=== PATIENT | female | born 1965 | race Caucasian/White ===

== ENCOUNTER 2020-06-08 08:04 | Outpatient (CLI) | payer BC, SELFPAY ==
--- NOTE | 2020-06-08 08:16 | MM_ITS ---
WS: [id number] Exam: [id number] Date/Time of Exam: 06/08/2020 8:22 AM Reason For Exam: SCREENING VIEWS: MLO and CC views both breasts. Comparison made with prior exam of 05/17/2007. Findings: There was no sign of mass, architectural distortion or suspicious calcification in either breast. Sc attered fibroglandular density MM/[place] [id number] Impression: BI-RADS: 2-Benign FOLLOW-UP: 1 Year Follow-up This mammogram was also analyzed by the Computer Aided Detection System R2 Imag e Communication Center Operator.
== END 2020-06-08 08:05 | disposition home or self-care (01) ==
PROVIDERS: PCP Physician Assistant; Visit Provider Physician Assistant
DX: Z12.31 Encounter for screening mammogram for malignant neoplasm of breast (principal)
CPT/HCPCS: 77067

== ENCOUNTER 2020-11-27 18:37 | Emergency (ER) | payer BC, SELFPAY ==
[2020-11-27] VITALS (15 sets, daily range): BP systolic 103–190; BP diastolic 69–97; PULSE 80–143; RESP 10–18; TEMP 36.1; O2SAT 97–100; BMI 27.4
--- NOTE | 2020-11-27 18:39 | XRR_ITS ---
PROCEDURE INFORMATION: Exam: XR Chest Exam date and time: 11/27/2020 6:41 PM Age: 55 years old Clinical indication: Other: Syncope/bradycardia; Patient HX: Unresponsive TECHNIQUE: Imaging protocol: XR of the chest. Views: 1 view. COMPARISON: No relevant prior studies available. FINDINGS: Tubes, catheters and devices: The endotracheal tube is appropriately positioned in the distal thoracic trachea with the tip above the gigi. The nasogastric tube is positioned in the stomach, well beyond the diaphragmatic hiatus. The tip is not imaged. Lungs: Lung volumes are low. There is no consolidation. Pleural spaces: There is no pneumothorax. The left hemidiaphragm is obscured which could represent pleural fluid or atelectasis. Heart/Mediastinum: There is mild enlargement of the cardiac silhouette. Bones/joints: Bones are unremarkable. XR/XR chest 1V portable [id number] IMPRESSION: 1. Satisfactory endotracheal tube position. 2. Atelectasis or small volume pleural fluid on the left. 3. NG tube enters the stomach. The tip is not imaged.
[2020-11-27] MEDS: succinylcholine 20 mg/mL SDV 10mL 100 MG IVP (18:42)
[2020-11-27] MEDS: midazolam 1 mg/mL INJ 2 mL 4 MG (18:50)
--- NOTE | 2020-11-27 18:52 | CTR_ITS ---
PROCEDURE INFORMATION: Exam: CT Head Without Contrast Exam date and time: 11/27/2020 6:54 PM Age: 55 years old Clinical indication: Pain; Syncope and collapse; Headache; Prior surgery; Surgery type: Embolization; Additional info: Syncope, sudden ANDREW, HX cerebral anuerysm TECHNIQUE: Imaging protocol: Computed tomography of the head without contrast. Radiation optimization: All CT scans at this facility use at least one of these dose optimization techniques: automated exposure control; mA and/or kV adjustment per patient size (includes targeted exams where dose is matched to clinical indication); or iterative reconstruction. Other technique: STROKE PROTOCOL was implemented. COMPARISON: No relevant prior studies available. RADIATION DOSE METRICS: Total DLP (mGy-cm): 786.81 FINDINGS: Brain: There is a left cerebral hemispheric subdural hematoma measuring up to 6 mm in thickness. There is small volume subarachnoid hemorrhage in the left sylvian cistern and adjacent sulci. There are 2 intraparenchymal hematomas in the left temporal lobe measuring 3.7 x 1.8 x 1.4 cm in the temporal operculum (5 cc), and 3.6 x 1.5 x 1.6 cm (4 cc) in the anterior temporal lobe. There is diffuse partial sulcal effacement in the left cerebral hemisphere. There are aneurysm coils in the left suprasellar cistern. There is rightward midline shift of 6 mm. Cerebral ventricles: There is partial effacement of the left lateral ventricle. There is no intraventricular hemorrhage. The right lateral ventricle is normal. Bones/joints: The calvarium is intact. Paranasal sinuses: The paranasal sinuses are clear. Mastoid air cells: The mastoid air cells are clear. Soft tissues: The visible extracranial soft tissues are unremarkable. CT/CT head wo con* [id number] IMPRESSION: 1. Left sylvian subarachnoid, temporal intraparenchymal, and left cerebral hemispheric subdural hemorrhage, likely related to bleeding aneurysm. There are adjacent aneurysm coils in the left suprasellar cistern. No aneurysm is clearly visible on this exam. Consider CTA. 2. 6 mm rightward subfalcine midline shift. 3. THIS REPORT CONTAINS FINDINGS THAT MAY BE CRITICAL TO PATIENT CARE. The findings were verbally communicated via telephone conference with PROSPER HINES at 7:19 PM CDT on 11/27/2020. The findings were acknowledged and understood. ASSESSMENT: ASPECTS ([place] Stroke Program Early CT Score) is 8. Radiation Dose CTDIVOL = (mGy): DLP = 786.81 (mGy-cm)
[2020-11-27] MEDS: propofol 10 mg/mL SDV 20 mL 30 MG IVP (19:06)
[2020-11-27] MEDS: propofol 10 mg/mL SDV 20 mL 50 MG IVP ×2 (19:14→19:39)
[2020-11-27] MEDS: propofol 1,000 MG/100 ML INJ 9.3 MG IV (19:18)
--- NOTE | 2020-11-27 19:22 | PC.NURSE ---
Propofol titrated up to 25 mcg/kg/min.
[2020-11-27 19:26] LABS: ABG PCO2 47.9 mmHg (35-45); ABG PH Result 7.37 (7.35-7.45); Base Excess ABG 1.9 mmol/L (-2.0-2.0); Blood Gas Allen Test Pos; Blood Gas Sample Type Arterial; Carboxyhemoglobin 3.1 %THgb (0.4-20.1); HCO3 ABG 27.9 mmol/L (22-26); HGB O2 Sat 95.1 % (95-100); Ionized Calcium Level - ABG 1.1 mmol/L (1.1-1.4); Methemoglobin 0.8 % (0.4-1.5); Potassium Level - ABG 2.8 mmol/L (3.5-5.0); Total Hemoglobin 13.7 g/dL (12-16)
--- NOTE | 2020-11-27 19:27 | PC.NURSE ---
Patient propofol titrated up to 32mcg/kg/min.
[2020-11-27 19:28] LABS: Alveolar-Arterial Oxygen Gradi 31.7 mmHg (5-10); Blood Gas Operator Identificat glc; Blood Gas Sample Site Radial, right; Oxygen Device VENT
[2020-11-27 19:32] LABS: Add Urine Microscopic? NO; Charge for UA Resulting for Rev
--- NOTE | 2020-11-27 19:34 | ED_ITS ---
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 They were going to come to the hospital, but for she got out of the restaurant, she collapsed. She was unresponsive on EMS arrival. They found a heart rate in the 30s. She was given atropine in route as well as placed on a dopamine drip. On arrival, her heart rate was in the 140s, and she was hypertensive, and still unresponsive. On arrival she also vomited, and was therefore intubated. Review of Systems General: Reports: ROS unobtainable due to medical condition Physical Exam Const: EXAM LIMITATIONS: altered mental status GENERAL APPEARANCE: diaphoretic ORIENTATION/CONSCIOUSNESS: Yes Other orientation findings (Unre sponsive) Eye: COMMON NORMALS: conjunctivae normal CONJUNCTIVA: Yes conjunctivae normal Chest: COMMONS NORMALS: normal inspection of the chest Resp: COMMON NORMALS: clear to auscultation bilaterally EFFORT & INSPECTION: Yes decreased respiratory effort AUSCULTATION: clear to auscultation bilaterally Cardio: COMMON NORMALS: regular rhythm and Peripheral pulses 2+ throughout RATE: tachycardic RHYTHM: regular rhythm PERIPHERAL PULSES: Peripheral pulses 2+ throughout GI: COMMON NORMALS: Soft to palpation INSPECTION: Yes normal to inspection AUSCULTATION: Yes normoactive bowel sounds PALPATION: Yes Soft to palpation Extremity: NARRATIVE EXTREMITY EXAM: Some spontaneous movement of left upper extremity. Otherwise no movement. Neuro: ROSALEE COMA SCALE: document GCS findings Rosalee coma scale eye opening: None Vashon coma scale verbal response: None Rosalee coma scale motor response: None Rosalee coma scale total score: 3 SENSORIUM/ORIENTATION: Yes other (unresponsive. toes downgoing bilaterally. ) Procedures Intubation Time out performed: No sedative: Etomidate Mg Given: 20 paralytic: Succinylcholine Mg Given: 100 Laryngoscope: Roman (4) ET Tube Size: 8 Tube Secured Depth (cm): 22 Tube Secured Location: lips Tube Placement Confirmation: visualized tube passing through cords, equal breath sounds bilaterally, no breath sounds over epigastrium and confirmation by capnometry Patient Tolerated Procedure: well and no complications Intubation Complications: none Course Vital Signs: Vital signs: Vital Signs Temperature 97.0 F L 11/27/20 18:37 Pulse Rate 81 11/27/20 20:00 Respiratory Rate 16 11/27/20 20:00 Blood Pressure 146/85 11/27/20 20:00 Pulse Oximetry 100 11/27/20 20:00 MDM - Syncope MDM Narrative: Medical decision making narrative: 55-year-old female with a history of carotid aneurysm.She collapsed in the field. She was bradycardic initially. Tachycardic on arrival here after atropine and dopamine. Dopamine was stopped on arrival. The patient vomited in her airway, and was intubated without complication. She was promptly moved to CT scan, where a left subarachnoid bleed with temporal intraparenchymal hemorrhage was found she has a 6 mm rightward shift. [facility] and spoke with neurosurgery on-call. We also spoke with the ER physician there. Recommendations are 750 mg of Keppra to be loaded IV which is being done. We have a helicopter in route to transport to the ER there. Lab Data: Labs: Lab Results 11/27/20 11/27/20 11/27/20 Range/Units 19:20 19:20 19:20 WBC (4.0-10.0) 10^3/ uL RBC (4.1-5.3) 10^6/u L Hgb (11.5-15.3) g/dL Hct (37.0-47.0) % MCV (81-99) fL MCH (28.0-34.0) pg MCHC (30.0-36.0) g/dL RDW (12.1-15.1) % Plt Count (130-400) 10^3/c mm MPV (7.4-10.4) fL Neut % (Auto) % Lymph % (Auto) % [place] % (Auto) % Eos % (Auto) % Baso % (Auto) % Neut # (Auto) (1.8-7.7) 10^3/u L Lymph # (Auto) (0.8-4.8) 10^3/u L [place] # (Auto) (0.2-0.9) 10^3/u L Eos # (Auto) (0.0-0.8) 10^3/u L Baso # (Auto) (0.0-0.1) 10^3/u L Nucleated RBC % (a uto) % Nucleated RBCs # /100WBC PT (12.1-14.9) SECO NDS INR (0.8-1.2) APTT (23.9-36.7) SECO NDS D-Dimer (0-0.59) ug/mIFE U Specimen Type Arterial Sample Site Radial, right ABG pH 7.37 (7.35-7.45) ABG pCO2 47.9 H (35-45) mmHg ABG pO2 124.0 H (80.0-100.0) mmH g ABG HCO3 27.9 H (22-26) mmol/L ABG O2 Saturation 99.0 ABG Base Excess 1.9 (-2.0-2.0) mmol/ L Ayo Test Pos A-a O2 Gradient 31.7 H (5-10) mmHg Hematocrit 42.0 (37-47) % Hgb O2 Saturation 95.1 (95-100) % Carboxyhemoglobin 3.1 (0.4-20.1) %THgb Methemoglobin 0.8 (0.4-1.5) % Total Hemoglobin 13.7 (12-16) g/dL Sodium 145.0 H (131-143) mmol/L Potassium 2.8 L (3.5-5.0) mmol/L Glucose 213.0 H (70-115) mg/dL Ionized Calcium 1.1 (1.1-1.4) mmol/L O2 Delivery Device Vent FiO2 60.0 % Tidal Volume 0.40 PEEP 5.0 cmH20 Trauma Doctor ID glc Chloride (98-107) mmol/L Carbon Dioxide (22-29) mmol/L Anion Gap (5-19) BUN (6-20) mg/dL Creatinine (0.5-0.9) mg/dL GFR Calculation (90-130) mL/min Calculated Osmolal ity (285-295) mOsm/k g Calcium (8.5-10.5) mg/dL Total Bilirubin (0.15-1.2) mg/dL AST (0-32) U/L ALT (0-33) U/L Alkaline Phosphata se (35-105) IU/L Creatine Kinase (26-192) U/L Troponin T Baselin e (0-10) ng/L NT-Pro-B Natriuret Pep (0-125) pg/mL Total Protein (6.6-8.7) g/dL Albumin (3.5-5.2) g/dL Globulin (1.3-4.6) g/dL TSH (0.27-4.20) uIU/ mL Free T4 (0.82-1.77) ng/d L Urine Color Straw (Yellow) Urine Appearance Clear (CLEAR) Urine pH 6.5 (5-7) Ur Specific Gravit y 1.010 (1.005-1.030) Urine Protein Neg (Negative) Urine Glucose (UA) Norm (Normal) Urine Ketones Negative (Negative) Urine Blood Neg (Negative) Urine Nitrate Negative (Negative) Urine Bilirubin Neg (Negative) Urine Urobilinogen Norm (Negative) mg/dL Ur Leukocyte Roma ase Negative (Negative) Urine Opiates Scre en Negative (Negative) ng/mL Ur Barbiturates Sc reen Negative (Negative) ng/mL Ur Phencyclidine S crn Negative (Negative) ng/mL Ur Amphetamines Sc reen Negative (Negative) ng/mL U Benzodiazepines Scrn Negative (Negative) ng/mL Urine Cocaine Scre en Negative (Negative) ng/mL U Marijuana (THC) Screen Negative (Negative) ng/mL 11/27/20 11/27/20 11/27/20 Range/Units 19:42 19:42 19:42 WBC 12.3 H (4.0-10.0) 10^3/ uL RBC 4.34 (4.1-5.3) 10^6/u L Hgb 13.0 (11.5-15.3) g/dL Hct 39.1 (37.0-47.0) % MCV 90.1 (81-99) fL MCH 30.0 (28.0-34.0) pg MCHC 33.2 (30.0-36.0) g/dL RDW 13.2 (12.1-15.1) % Plt Count 353 (130-400) 10^3/c mm MPV 10.1 (7.4-10.4) fL Neut % (Auto) 70.9 % Lymph % (Auto) 20.2 % [place] % (Auto) 6.4 % Eos % (Auto) 1.2 % Baso % (Auto) 0.6 % Neut # (Auto) 8.71 H (1.8-7.7) 10^3/u L Lymph # (Auto) 2.5 (0.8-4.8) 10^3/u L [place] # (Auto) 0.8 (0.2-0.9) 10^3/u L Eos # (Auto) 0.2 (0.0-0.8) 10^3/u L Baso # (Auto) 0.1 (0.0-0.1) 10^3/u L Nucleated RBC % (a uto) 0 % Nucleated RBCs # 0.0 /100WBC PT 14.00 (12.1-14.9) SECO NDS INR 1.05 (0.8-1.2) APTT 33.1 (23.9-36.7) SECO NDS D-Dimer 1.22 H (0-0.59) ug/mIFE U Specimen Type Sample Site ABG pH (7.35-7.45) ABG pCO2 (35-45) mmHg ABG pO2 (80.0-100.0) mmH g ABG HCO3 (22-26) mmol/L ABG O2 Saturation ABG Base Excess (-2.0-2.0) mmol/ L Ayo Test A-a O2 Gradient (5-10) mmHg Hematocrit (37-47) % Hgb O2 Saturation (95-100) % Carboxyhemoglobin (0.4-20.1) %THgb Methemoglobin (0.4-1.5) % Total Hemoglobin (12-16) g/dL Sodium 140 (131-143) mmol/L Potassium 3.4 L (3.5-5.0) mmol/L Glucose 196 H (70-115) mg/dL Ionized Calcium (1.1-1.4) mmol/L O2 Delivery Device FiO2 % Tidal Volume PEEP cmH20 Trauma Doctor ID Chloride 102 (98-107) mmol/L Carbon Dioxide 28 (22-29) mmol/L Anion Gap 13.4 (5-19) BUN 9 (6-20) mg/dL Creatinine 0.7 (0.5-0.9) mg/dL GFR Calculation 86.6 L (90-130) mL/min Calculated Osmolal ity 294 (285-295) mOsm/k g Calcium 8.2 L (8.5-10.5) mg/dL Total Bilirubin 0.3 (0.15-1.2) mg/dL AST 35 H (0-32) U/L ALT 44 H (0-33) U/L Alkaline Phosphata se 81 (35-105) IU/L Creatine Kinase 126 (26-192) U/L Troponin T Baselin e (0-10) ng/L NT-Pro-B Natriuret Pep 81 (0-125) pg/mL Total Protein 6.3 L (6.6-8.7) g/dL Albumin 4.0 (3.5-5.2) g/dL Globulin 2.3 (1.3-4.6) g/dL TSH 1.59 (0.27-4.20) uIU/ mL Free T4 1.20 (0.82-1.77) ng/d L Urine Color (Yellow) Urine Appearance (CLEAR) Urine pH (5-7) Ur Specific Gravit y (1.005-1.030) Urine Protein (Negative) Urine Glucose (UA) (Normal) Urine Ketones (Negative) Urine Blood (Negative) Urine Nitrate (Negative) Urine Bilirubin (Negative) Urine Urobilinogen (Negative) mg/dL Ur Leukocyte Roma ase (Negative) Urine Opiates Scre en (Negative) ng/mL Ur Barbiturates Sc reen (Negative) ng/mL Ur Phencyclidine S crn (Negative) ng/mL Ur Amphetamines Sc reen (Negative) ng/mL U Benzodiazepines Scrn (Negative) ng/mL Urine Cocaine Scre en (Negative) ng/mL U Marijuana (THC) Screen (Negative) ng/mL 11/27/20 Range/Units 19:42 WBC (4.0-10.0) 10^3/ uL RBC (4.1-5.3) 10^6/u L Hgb (11.5-15.3) g/dL Hct (37.0-47.0) % MCV (81-99) fL MCH (28.0-34.0) pg MCHC (30.0-36.0) g/dL RDW (12.1-15.1) % Plt Count (130-400) 10^3/c mm MPV (7.4-10.4) fL Neut % (Auto) % Lymph % (Auto) % [place] % (Auto) % Eos % (Auto) % Baso % (Auto) % Neut # (Auto) (1.8-7.7) 10^3/u L Lymph # (Auto) (0.8-4.8) 10^3/u L [place] # (Auto) (0.2-0.9) 10^3/u L Eos # (Auto) (0.0-0.8) 10^3/u L Baso # (Auto) (0.0-0.1) 10^3/u L Nucleated RBC % (a uto) % Nucleated RBCs # /100WBC PT (12.1-14.9) SECO NDS INR (0.8-1.2) APTT (23.9-36.7) SECO NDS D-Dimer (0-0.59) ug/mIFE U Specimen Type Sample Site ABG pH (7.35-7.45) ABG pCO2 (35-45) mmHg ABG pO2 (80.0-100.0) mmH g ABG HCO3 (22-26) mmol/L ABG O2 Saturation ABG Base Excess (-2.0-2.0) mmol/ L Ayo Test A-a O2 Gradient (5-10) mmHg Hematocrit (37-47) % Hgb O2 Saturation (95-100) % Carboxyhemoglobin (0.4-20.1) %THgb Methemoglobin (0.4-1.5) % Total Hemoglobin (12-16) g/dL Sodium (131-143) mmol/L Potassium (3.5-5.0) mmol/L Glucose (70-115) mg/dL Ionized Calcium (1.1-1.4) mmol/L O2 Delivery Device FiO2 % Tidal Volume PEEP cmH20 Trauma Doctor ID Chloride (98-107) mmol/L Carbon Dioxide (22-29) mmol/L Anion Gap (5-19) BUN (6-20) mg/dL Creatinine (0.5-0.9) mg/dL GFR Calculation (90-130) mL/min Calculated Osmolal ity (285-295) mOsm/k g Calcium (8.5-10.5) mg/dL Total Bilirubin (0.15-1.2) mg/dL AST (0-32) U/L ALT (0-33) U/L Alkaline Phosphata se (35-105) IU/L Creatine Kinase (26-192) U/L Troponin T Baselin e 10 (0-10) ng/L NT-Pro-B Natriuret Pep (0-125) pg/mL Total Protein (6.6-8.7) g/dL Albumin (3.5-5.2) g/dL Globulin (1.3-4.6) g/dL TSH (0.27-4.20) uIU/ mL Free T4 (0.82-1.77) ng/d L Urine Color (Yellow) Urine Appearance (CLEAR) Urine pH (5-7) Ur Specific Gravit y (1.005-1.030) Urine Protein (Negative) Urine Glucose (UA) (Normal) Urine Ketones (Negative) Urine Blood (Negative) Urine Nitrate (Negative) Urine Bilirubin (Negative) Urine Urobilinogen (Negative) mg/dL Ur Leukocyte Roma ase (Negative) Urine Opiates Scre en (Negative) ng/mL Ur Barbiturates Sc reen (Negative) ng/mL Ur Phencyclidine S crn (Negative) ng/mL Ur Amphetamines Sc reen (Negative) ng/mL U Benzodiazepines Scrn (Negative) ng/mL Urine Cocaine Scre en (Negative) ng/mL U Marijuana (THC) Screen (Negative) ng/mL Critical Care Time Critical Care Time: Critical Care Time: Yes Total Critical Care Time: 40 Attestation: This case had a high probability of a clinically significant, sudden, or life threatening deterioration of this patient's condition which required my full and direct attention, intervention and personal management. Discharge Plan Discharge Patient Disposition: Xfer Short-Term Hosp Clinical Impression: Subarachnoid hemorrhage, Intracranial hemorrhage Condition: Critical Referrals: Floresita Wills PA [Primary Care Provider] - Coding Level of Care Code ED Club Car Attendant for [place] Fwd Exam Detailed
[2020-11-27 19:36] LABS: Bilirubin Urine Neg (Negative); Blood Urine Neg (Negative); Glucose Urine UA Norm (Normal); Ketones Urine Negative (Negative); Leukocyte Esterase Urine Negative (Negative); Nitrate Urine Negative (Negative); Protein Urine Neg (Negative); Urine Appearance Clear (CLEAR); Urine Color Straw (Yellow); Urobilinogen Urine Norm (Negative); pH Urine 6.5 (5-7)
[2020-11-27] MEDS: levETIRAcetam 750 MG in sodium chloride 0.9% (100 ml) 100 ML 430 MG IV (19:45)
[2020-11-27 19:46] LABS: Amphetamines Screen Urine Negative (Negative); Barbiturates Screen Urine Negative (Negative); Benzodiazepines Screen Urine Negative (Negative); Cocaine Screen Urine Negative (Negative); Opiate Screen Urine Negative (Negative); PCP Screen Urine Negative (Negative); THC Screen Urine Negative (Negative)
[2020-11-27] MEDS: diphenhydrAMINE 50 mg/mL SDV 1mL IVP (19:52)
--- NOTE | 2020-11-27 19:54 | PC.NURSE ---
Pt was brought in by EMS on 15L NRB mask. Pt immediately placed on Zoll pads upon arrival. RT, Jameson Shea and Elmer at bedside upon pt arrival. Pt was vomiting upon arrival, suctioned by RT. Pt sedated for intubation, see MAR for times. Pt suctioned just prior to intubation by Dr Payne. Pt intubated at 184 with 8.0 tube, 21 at the lip by Dr Payne. Pt placed on BVM with bilateral chest rise and good lung sounds. 14 FR OG placed at 1846 d/t pt vomiting. EKG obtained at 1850, pt then taken to CT at 185 on cardiac monitoring with RT, nursing and Jameson Shea and Elmer. Pt returned from CT at 190 and placed on Vent. XR performed upon pt return. Vent settings as follows: TV 400, RR 14, 60% FiO2, Peep 5. 16 FR gonzales catheter placed at 191. Pt tolerated all procedures fair. Pt and family at bedside and updated by both Dr Shea and Dr Payne. Pt stabalized for transfer by [facility] to [facility]. Report called to Reba Han
[2020-11-27 20:03] LABS: Basophils # 0.1 10^3/uL (0.0-0.1); Basophils % 0.6 %; Eosinophils # 0.2 10^3/uL (0.0-0.8); Eosinophils % 1.2 %; Hematocrit 39.1 % (37.0-47.0); Lymphocytes # 2.5 10^3/uL (0.8-4.8); Lymphocytes % 20.2 %; Mean Corpuscular HGB Conc 33.2 g/dL (30.0-36.0); Mean Corpuscular Volume 90.1 fL (81-99); Mean Platelet Volume 10.1 fL (7.4-10.4); Monocytes # 0.8 10^3/uL (0.2-0.9); Monocytes % 6.4 %; Neutrophils # 8.71 10^3/uL (1.8-7.7); Neutrophils % 70.9 %; Nucleated Red Blood Cells % 0 %; Platelet Count 353 10^3/cmm (130-400); Red Blood Count 4.34 10^6/uL (4.1-5.3); Red Cell Distribution Width 13.2 % (12.1-15.1); White Blood Count 12.3 10^3/uL (4.0-10.0)
[2020-11-27 20:09] LABS: INR 1.05 (0.8-1.2)
[2020-11-27] MEDS: famotidine 20 mg/2 mL INJ 40 MG IVP (20:09)
[2020-11-27 20:10] LABS: Partial Thromboplastin Time 33.1 SECONDS (23.9-36.7)
[2020-11-27 20:12] LABS: D Dimer 1.22 ug/mIFEU (0-0.59)
[2020-11-27 20:23] LABS: Troponin(5th) Baseline 10 ng/L (0-10)
[2020-11-27 20:31] LABS: Alanine Aminotransferase 44 U/L (0-33); Alkaline Phosphatase 81 IU/L (35-105); Blood Urea Nitrogen 9 mg/dL (6-20); Calcium 8.2 mg/dL (8.5-10.5); Carbon Dioxide 28 mmol/L (22-29); Chloride 102 mmol/L (98-107); Creatine Phosphokinase 126 U/L (26-192); Globulin 2.3 g/dL (1.3-4.6); Glomerular Filtration Rate 86.6 mL/min (90-130); Glucose 196 mg/dL (65-115); NT Pro B Type Natriuretic Pept 81 pg/mL (0-125); Osmolality Calculated 294 mOsm/kg (285-295); Sodium 140 mmol/L (136-145); Thyroid Stimulating Hormone 1.59 uIU/mL (0.27-4.20); Total Bilirubin 0.3 mg/dL (0.15-1.2); Total Protein 6.3 g/dL (6.6-8.7)
[2020-11-27 20:33] LABS: Anion Gap 13.4 (5-19); Aspartate Amino Transferase 35 U/L (0-32); Potassium 3.4 mmol/L (3.5-5.1)
== END 2020-11-27 20:15 | disposition short-term general hospital (02) ==
PROVIDERS: Family Medicine; Emergency Provider Emergency Medicine; PCP Physician Assistant
DX: I60.9 Nontraumatic subarachnoid hemorrhage, unspecified (principal)
CPT/HCPCS: 31500; 36600; 51702; 70450; 71045; 80051; 80053; 80306; 81003; 82330; 82550; 82805; 83880; 84439; 84443; 84484; 85025; 85378; 85610; 85730; 94002; 94799; 96365; 96367; 96375; 99291; J0330; J1200; J1953; J2250; J2704; J2930; J3490

== ENCOUNTER 2021-02-25 03:31 | Emergency (ER) | payer OTHER, SELFPAY ==
--- NOTE | 2021-02-25 03:32 | ECG_ITS ---
[facility] ED Test Date: 2021-02-25 Pat Name: Ángela Christiansen Department: Room: Gender: Female Pipe Turner: : 1965 Requested By: Kishor Epps Order Number: [id number] Patricia MD: Rozina Fisher M.D. Measurements Intervals [place] Rate: 93 P: 41 CA: 160 QRS: -22 QRSD: 95 T: 52 QT: 343 QTc: 429 Interpretive Statements SINUS RHYTHM BORDERLINE LEFT AXIS DEVIATION [QRS AXIS < -20] LEFT VENTRICULAR HYPERTROPHY AND ST-T CHANGE [VOLTAGE CRITERIA PLUS ST/T ABNORMALITY] No previous ECG available for comparison Electronically Signed On 02-26-2021 16:43:33 CDT by Rozina Fisher M.D. [id number] f
[2021-02-25 03:38] VITALS: BP 144/100; PULSE 94; RESP 18; O2SAT 96; BMI 26.1
--- NOTE | 2021-02-25 03:38 | XRR_ITS ---
PROCEDURE INFORMATION: Exam: XR Chest Exam date and time: 02/25/2021 3:38 AM Age: 55 years old Clinical indication: Chest pressure; Patient HX: Chest pain; Additional info: Cp TECHNIQUE: Imaging protocol: XR of the chest. Views: 1 view. COMPARISON: CR (CHEST, ) 11/27/2020 6:59 PM FINDINGS: Lungs: No consolidation. Pleural spaces: Unremarkable. No pleural effusion. No pneumothorax. Heart/Mediastinum: No cardiomegaly. Bones/joints: No acute fracture. XR/XR chest 1V portable [id number] IMPRESSION: No acute findings.
--- NOTE | 2021-02-25 03:43 | ED_ITS ---
HPI - Chest Pain General: Chief Complaint: Chest Pain Stated Complaint: CP Time Seen by Provider: 02/25/21 03:32 Source: patient and EMS Mode of arrival: EMS Limitations: no limitations History of Present Illness: HPI narrative: 55-year-old female who had a history of a intracranial hemorrhage back in November where she was transferred to [place] and had to have decompression. States she has been doing well from that. States that tonight she woke up at 2 AM and her heart was racing. She states she was having palpitations that was not resolving. States she has no history of palpitations in the past. She denies having any chest pain or shortness of breath. She called EMS EMS states she was in SVT with a heart rate of 200. They tried vagal maneuvers that did not convert it. They did give her adenosine but they are unsure if the line had infiltrated and not as the line shortly thereafter infiltrated. Roughly 5 to 10 minutes after that she spontaneously converted. She states she feels much improved has no complaints currently. Her heart rate here is 94. She denies any chest pain shortness of breath. Denies any recent illness or fever. Associated symptoms: Reports palpitations; Deny abdominal pain, dyspnea, fever(s), nausea or vomiting Review of Systems Const: Denies: fever(s), chills, body aches or change in appetite Eyes: Denies: blurry vision or eye discomfort ENMT: Denies: throat pain or dental pain Card: Reports: palpitations Resp: Denies: dyspnea GI: Denies: abdominal pain, nausea, vomiting or diarrhea : Denies: dysuria Musc: Denies: neck pain or back pain Skin/Breast: Denies: rash Neuro: Denies: headache(s) Psych: Denies: depression Tor/Lymph: Denies: easy bruising All/Imm: Denies: urticaria Physical Exam Const: COMMON NORMALS: no acute distress, patient oriented x3 and healthy appearing HENMT: COMMON NORMALS: normocephalic and atraumatic HEAD & SCALP: normocephalic and atraumatic Eye: COMMON NORMALS: Equal, round and reactive pupils present and EOMs intact bilaterally PUPIL: Yes Equal, round and reactive pupils present Neck/C-Spine: COMMON NORMALS: full ROM and supple Chest: COMMONS NORMALS: normal inspection of the chest and normal palpation of entire chest wall Resp: COMMON NORMALS: normal respiratory effort, No retractions, No use of accessory muscles and clear to auscultation bilaterally AUSCULTATION: clear to auscultation bilaterally Cardio: COMMON NORMALS: regular rate, regular rhythm and No murmurs present (Cardio) RATE: regular rate RHYTHM: regular rhythm GI: COMMON NORMALS: Normal to inspection, nondistended, normoactive bowel sounds present, Soft to palpation, non-tender and no masses PALPATION: Yes Soft to palpation Extremity: COMMON NORMALS: normal to inspection and full ROM Neuro: COMMON NORMALS: patient oriented x3, moves all extremities and no focal motor deficits Psych: COMMON NORMALS: mental status grossly normal, Normal thought process present and cooperative THOUGHT PROCESS: Normal thought process present Skin: COMMON NORMALS: no rashes or lesions noted and no wounds GENERAL SKIN EXAM: no rashes or lesions noted Course Vital Signs: Vital signs: Vital Signs Pulse Rate 89 02/25/21 04:07 Respiratory Rate 16 02/25/21 04:07 Blood Pressure 123/91 02/25/21 04:07 Pulse Oximetry 96 02/25/21 04:07 MDM - Chest Pain MDM Narrative: Medical decision making narrative: Patient presents here with likely SVT that converted in EMS. She has been well-appearing here pain-free. Her heart rate here has been normal. We will have her follow-up with cardiology and she is return if worsening. She understands agrees to plan. Lab Data: Labs: Lab Results 02/25/21 02/25/21 Range/Units 04:13 04:13 WBC 6.0 (4.0-10.0) 10^3/ uL RBC 4.93 (4.1-5.3) 10^6/u L Hgb 13.2 (11.5-15.3) g/dL Hct 42.2 (37.0-47.0) % MCV 85.6 (81-99) fL MCH 26.8 L (28.0-34.0) pg MCHC 31.3 (30.0-36.0) g/dL RDW 14.0 (12.1-15.1) % Plt Count 366 (130-400) 10^3/c mm MPV 10.3 (7.4-10.4) fL Neut % (Auto) 56.4 % Lymph % (Auto) 32.0 % [place] % (Auto) 7.8 % Eos % (Auto) 2.3 % Baso % (Auto) 1.3 % Neut # (Auto) 3.40 (1.8-7.7) 10^3/u L Lymph # (Auto) 1.9 (0.8-4.8) 10^3/u L [place] # (Auto) 0.5 (0.2-0.9) 10^3/u L Eos # (Auto) 0.1 (0.0-0.8) 10^3/u L Baso # (Auto) 0.1 (0.0-0.1) 10^3/u L Nucleated RBC % (a uto) 0 % Nucleated RBCs # 0.0 /100WBC Sodium 143 (136-145) mmol/L Potassium 3.6 (3.5-5.1) mmol/L Chloride 105 (98-107) mmol/L Carbon Dioxide 27 (22-29) mmol/L Anion Gap 14.6 (5-19) BUN 9 (6-20) mg/dL Creatinine 0.7 (0.5-0.9) mg/dL GFR Calculation 86.6 L (90-130) mL/min Glucose 113 (65-115) mg/dL Calculated Osmolal ity 295 (285-295) mOsm/k g Calcium 8.8 (8.5-10.5) mg/dL Total Bilirubin 0.2 (0.15-1.2) mg/dL AST 18 (0-32) U/L ALT 16 (0-33) U/L Alkaline Phosphata se 92 (35-105) IU/L Total Protein 7.1 (6.6-8.7) g/dL Albumin 4.3 (3.5-5.2) g/dL Globulin 2.8 (1.3-4.6) g/dL EKG Data^: EKG 1: Attestation: I personally reviewed and interpreted this EKG as follows: EKG interpretation date: 02/25/21 EKG interpretation time: 03:38 Interpretation: nsr hr [address] or t wave abnormalities qrs 95 qtc 394 Discharge Plan Discharge Patient Disposition: Home Clinical Impression: SVT (supraventricular tachycardia) Condition: Stable Discharge Orders: Discharge ED (Routine); Ordered 02/25/21 Ordered By: Kishor Epps Referrals: Jude Lehman M.D [Physician] - 1-3 days Floresita Wills PA [Primary Care Provider] - Discharge Diet: Advance as tolerated Discharge Activity: Resume usual activity Patient Instructions: Supraventricular Tachycardia (ED) Coding Level of Care Code ED Airplane Captain for Chg Fwd Exam Comprehensive
[2021-02-25 04:07] VITALS: BP 123/91; PULSE 89; RESP 16; O2SAT 96
[2021-02-25 04:22] LABS: Basophils # 0.1 10^3/uL (0.0-0.1); Basophils % 1.3 %; Eosinophils # 0.1 10^3/uL (0.0-0.8); Eosinophils % 2.3 %; Hematocrit 42.2 % (37.0-47.0); Hemoglobin 13.2 g/dL (11.5-15.3); Lymphocytes # 1.9 10^3/uL (0.8-4.8); Mean Corpuscular HGB Conc 31.3 g/dL (30.0-36.0); Mean Corpuscular Hemoglobin 26.8 pg (28.0-34.0); Mean Corpuscular Volume 85.6 fL (81-99); Mean Platelet Volume 10.3 fL (7.4-10.4); Monocytes # 0.5 10^3/uL (0.2-0.9); Monocytes % 7.8 %; Neutrophils % 56.4 %; Nucleated Red Blood Cells % 0 %; Platelet Count 366 10^3/cmm (130-400); Red Blood Count 4.93 10^6/uL (4.1-5.3)
[2021-02-25 04:37] LABS: Alanine Aminotransferase 16 U/L (0-33); Albumin Level 4.3 g/dL (3.5-5.2); Alkaline Phosphatase 92 IU/L (35-105); Anion Gap 14.6 (5-19); Aspartate Amino Transferase 18 U/L (0-32); Blood Urea Nitrogen 9 mg/dL (6-20); Calcium 8.8 mg/dL (8.5-10.5); Carbon Dioxide 27 mmol/L (22-29); Chloride 105 mmol/L (98-107); Globulin 2.8 g/dL (1.3-4.6); Glomerular Filtration Rate 86.6 mL/min (90-130); Glucose 113 mg/dL (65-115); Osmolality Calculated 295 mOsm/kg (285-295); Potassium 3.6 mmol/L (3.5-5.1); Sodium 143 mmol/L (136-145); Total Bilirubin 0.2 mg/dL (0.15-1.2); Total Protein 7.1 g/dL (6.6-8.7)
[2021-02-25 05:22] VITALS: BP 152/84; PULSE 80; RESP 18; O2SAT 96
--- NOTE | 2021-02-25 10:07 | DCPLANNER ---
indoor sports centre manager had message to schedule a follow up appointment for patient with [facility]. indoor sports centre manager called [facility], spoke with Ezlbieta, gave clinic patients information. A follow up appointment was scheduled for Monday, March 03, 2021 at 2:[address] Lehman. indoor sports centre manager called patient, spoke with patients , gave him the appointment information.
--- NOTE | 2021-03-11 12:45 | DCPLANNER ---
Patient has a follow up appointment scheduled for 03.03.21 with [facility] - patient did attend appointment.
== END 2021-02-25 05:23 | disposition home or self-care (01) ==
PROVIDERS: Emergency Provider Emergency Medicine; PCP Physician Assistant
DX: I47.1 Supraventricular tachycardia (principal)
CPT/HCPCS: 71045; 80053; 85025; 93005; 99283

== ENCOUNTER 2021-06-01 09:34 | Outpatient (RCR) | payer OTHER, SELFPAY | END 2021-06-22 23:59 | disposition home or self-care (01) | LOC: SST 09:34 | PROVIDERS: PCP Physician Assistant; Visit Provider Nurse Practitioner Family | DX: I69.320 Aphasia following cerebral infarction (principal) | CPT/HCPCS: 92507; 96125 ==

== ENCOUNTER 2021-06-23 06:00 | Outpatient (RCR) | payer OTHER, SELFPAY | END 2021-07-23 23:59 | disposition home or self-care (01) | LOC: SST 06:00 | PROVIDERS: PCP Physician Assistant; Visit Provider Nurse Practitioner Family | DX: I60.9 Nontraumatic subarachnoid hemorrhage, unspecified (principal); I62.00 Nontraumatic subdural hemorrhage, unspecified; R41.841 Cognitive communication deficit | CPT/HCPCS: 92507 ==

== ENCOUNTER 2021-07-12 09:33 | Outpatient (CLI) | payer OTHER, SELFPAY ==
--- NOTE | 2021-07-12 09:30 | USCV_ITS ---
Ángela Christiansen Age: 56 Gender: F : 1965 Exam Date: 07/12/2021 09:47 Ordering Phys: Jude Lehman M.D ([email or web address]) Technologist: ERIC [place]am Location[place] [facility] [place]ication: SUPRAVENTRICULAR TACHYCARDIA BP: 142 / 72 HR: 61 Rhythm: Other Technical Quality: Adequate MEASUREMENTS (Male / Female) Normal Values 2D ECHO LV Diastolic Diameter PLAX 4.6 cm 4.2 - 5.9 / 3.9 - 5.3 cm LV Systolic Diameter PLAX 2.9 cm IVS Diastolic Thickness 1.1 cm 0.6 - 1.0 / 0.6 - 0.9 cm IVS Systolic Thickness 1.3 cm LVPW Diastolic Thickness 1.1 cm 0.6 - 1.0 / 0.6 - 0.9 cm LVPW Systolic Thickness 1.7 cm LVOT Diameter 2.0 cm LV Ejection Fraction 2D Teich 65.8 % LV Ejection Fraction MOD 2C 72.1 % LV Ejection Fraction 2C AL 72.7 % LA Diameter 3.3 cm LA Width 3.4 cm LA Height 4.9 cm RA Width 3.8 cm RA Height 4.7 cm Aorta at Sinotubular Diameter 2.4 cm M-MODE Aortic Annulus Diameter 2.8 cm LA Ao Ratio MM 1.3 MV E Point Septal Separation 1.3 cm DOPPLER AV Peak Velocity 140.0 cm/s LVOT Peak Velocity 77.0 cm/s AV Area Cont Eq vti 1.8 cm squared AV Area Cont Eq pk 1.7 cm squared MV Area PHT 2.6 cm squared Mitral E to A Ratio 0.6 MV E' Velocity 30.5 cm/s Mitral E to MV E' Ratio 7.2 Mitral E to LV E' Lateral Ratio 10.1 Mitral E to LV E' Septal Ratio 5.6 TR Peak Velocity 221.0 cm/s TR Peak Gradient 19.5 mmHg TR Mean Velocity 189.9 cm/s TR Mean Gradient 15.9 mmHg TR Velocity Time Integral 81.3 cm RV Acceleration Time 0.1 s RV Ejection Time 0.3 s RV AcT/ET 0.4 FINDINGS Left Ventricle Normal left ventricular size. LV systolic function is normal with EF of 55-60%. No regional wall motion abnormalities. Grade 1 diastolic dysfunction Right Ventricle The right ventricle is normal in size and function. Right Atrium The right atrium is normal in size. Left Atrium The left atrium is normal in size. Mitral Valve Structurally normal mitral valve without significant stenosis or prolapse. There is trace mitral regurgitation. Aortic Valve Structurally normal aortic valve without significant sclerosis or stenosis. There is no aortic regurgitation. Tricuspid Valve Structurally normal tricuspid valve without significant stenosis. Trace tricuspid regurgitation. Pulmonary artery systolic pressure is normal. Pulmonic Valve Structurally normal pulmonic valve without significant stenosis. There is no pulmonic regurgitation. Pericardium Normal pericardium without effusion. Aorta Normal ascending aorta dimension. CONCLUSIONS LV systolic function is normal with EF of 55-60% Grade 1 diastolic dysfunction Trace mitral regurgitation Trace tricuspid regurgitation No comparison studies are available Jude Lehman MD (Electronically Signed) Final Date: 18 July 2021 17:20 S
== END 2021-07-12 09:34 | disposition home or self-care (01) ==
PROVIDERS: PCP Physician Assistant; Visit Provider Internal Medicine
DX: I47.1 Supraventricular tachycardia (principal); I08.1 Rheumatic disorders of both mitral and tricuspid valves
CPT/HCPCS: 93306

== ENCOUNTER → 2024-04-10 08:47 | Outpatient (BNVA) | payer MEDICARE, SELFPAY | PROVIDERS: PCP Physician Assistant; Visit Provider Internal Medicine | DX: I10 Essential (primary) hypertension (principal); I47.10 Supraventricular tachycardia, unspecified | CPT/HCPCS: 99213 ==

== ENCOUNTER 2024-07-11 01:48 | Observation (INO) | payer MEDICARE, SELFPAY ==
[2024-07-11] VITALS (21 sets, daily range): BP systolic 125–175; BP diastolic 68–103; PULSE 53–79; RESP 13–25; TEMP 36.5–36.7; O2SAT 93–100; BMI 29.1
--- NOTE | 2024-07-11 01:55 | XRR_ITS ---
PROCEDURE INFORMATION: Exam: XR Chest Exam date and time: 07/11/2024 2:16 AM Age: 59 years old Clinical indication: Pain; Chest pressure; Additional info: Chest pain TECHNIQUE: Imaging protocol: Radiologic exam of the chest. Views: 1 view. COMPARISON: CR XR chest 1V portable [id number] 02/25/2021 3:45 AM FINDINGS: Lungs: Unremarkable. No consolidation. Pleural spaces: Unremarkable. No pleural effusion. No pneumothorax. Heart/Mediastinum: Unremarkable. No cardiomegaly. Bones/joints: Unremarkable. XR/XR chest 1V portable [id number] IMPRESSION: No acute findings.
--- NOTE | 2024-07-11 01:55 | ECG_ITS ---
[facility] Test Date: 2024-07-11 Pat Name: Ángela Christiansen Department: Room: Gender: Female Jewel Supervisor: : 1965 Requested By: Samantha Smith Order Number: [id number]-Marie Gomez MD: Joni Sawant M.D. Measurements Intervals [place] Rate: 64 P: 45 NE: 182 QRS: -18 QRSD: 93 T: 25 QT: 375 QTc: 389 Interpretive Statements SINUS RHYTHM POSSIBLE LEFT ATRIAL ENLARGEMENT [-0.1mV P-WAVE IN V1/V2] INCOMPLETE RIGHT BUNDLE BRANCH BLOCK [90+ ms QRS DURATION, TERMINAL R IN V1/V2, 40+ ms S IN I/aVL/V4/V5/V6] POSSIBLE LEFT VENTRICULAR HYPERTROPHY [VOLTAGE CRITERIA PLUS LAE OR QRS WIDENING] Compared to ECG 02/25/2021 03:38:34 Incomplete right bundle-branch block now present ST (T wave) deviation no longer present Electronically Signed On 07-11-2024 23:55:02 RATE EXAMINER by Joni Sawant M.D. [id number]
[2024-07-11 02:55] LABS: Basophils # 0.1 10^3/uL (0.0-0.1); Basophils % 0.8 %; Eosinophils # 0.2 10^3/uL (0.0-0.8); Eosinophils % 1.7 %; Hematocrit 44.2 % (36-47); Lymphocytes # 2.1 10^3/uL (0.8-4.8); Lymphocytes % 20.2 %; Mean Corpuscular HGB Conc 33.3 g/dL (30-55); Mean Corpuscular Hemoglobin 29.9 pg (27-33); Mean Corpuscular Volume 89.8 fl (85-98); Mean Platelet Volume 9.9 fL (7.4-10.4); Monocytes # 0.8 10^3/uL (0.2-0.9); Neutrophils # 7.13 10^3/uL (1.8-7.7); Neutrophils % 68.9 %; Nucleated Red Blood Cells % 0 %; Platelet Count 420 10^3/cmm (157-399); Red Blood Count 4.92 10^6/uL (3.85-5.65); Red Cell Distribution Width 12.5 % (12.1-15.1); White Blood Count 10.35 10^3/uL (3.29-11.43)
[2024-07-11 03:12] LABS: Troponin(5th) Baseline 11 ng/L (0-10)
--- NOTE | 2024-07-11 03:12 | ED_ITS ---
HPI - Chest Pain 2 General: Chief Complaint: Chest Pain Stated Complaint: HIGH BP Time Seen by Provider: 07/11/24 02:35 History of Present Illness: 59-year-old female who presents emergenc y room with hypertension and back and chest discomfort. Says she has been having belching. She checked her blood pressure and it kept going up. She initially had some pain in her upper back. And then had some feeling of epigastric discomfort. She says she has some aneurysms and so she was worried. She had some nausea and some sweats. No altered mental status. No headache. Related Data Home Medications Medication Instructions Recorded Confirmed acetaminophen 325 mg capsule 325 mg PO QID PRN 03/03/21 04/10/24 aspirin 325 mg tablet 325 mg PO DAILY 03/03/21 04/10/24 multivitamin 1 tab PO DAILY 03/03/21 04/10/24 cetirizine 5 mg-pseudoephedrine ER 1 tab PO BID PRN 11/04/21 04/10/24 120 mg tablet,extended release,12hr (Allergy Relief-D (cetirizine)) levetiracetam 1,000 mg tablet 750 mg PO BID 05/17/23 04/10/24 ascorbic acid (vitamin C) 1,000 mg 1 g PO DAILY 04/10/24 04/10/24 capsule Previous Rx's Medication Instructions Recorded metoprolol tartrate 25 mg tablet 25 mg PO BID #180 tabs 04/10/24 clonidine HCl 0.1 mg tablet 0.1 mg PO Q8H PRN hypertensive 07/11/24 emergency #20 tabs Allergies Allergy/AdvReac Type Severity Reaction Status Date / Time No Known Allergies Allergy Verified 04/10/24 09:02 Review of Systems 2 Narrative: Constitutional symptoms: Negative except as documented in HPI. Skin symptoms: Negative except as documented in HPI. Eye symptoms: Negative except as documented in HPI. ENMT symptoms: Negative except as documented in HPI. Respiratory symptoms: Negative except as documented in HPI. Cardiovascular symptoms: Negative except as documented in HPI. Gastrointestinal symptoms: Negative except as documented in HPI. Genitourinary symptoms: Negative except as documented in HPI. Musculoskeletal symptoms: Negative except as documented in HPI. Neurologic symptoms: Negative except as documented in HPI. Psychiatric symptoms: Negative except as documented in HPI. Endocrine symptoms: Negative except as documented in HPI. PFSH ED 2 PFSH: Medical History Pneumonia due to Streptococcus, group b Nontraumatic subarachnoid hemorrhage, unspecified Acute spontaneous subarachnoid intracranial hemorrhage Acute respiratory failure with hypoxia Nontraumatic subdural hemorrhage, unspecified Acute encephalopathy SVT (supraventricular tachycardia) Brain aneurysm Surgical History H/O craniotomy Family History Other CAD (coronary artery disease) Denies family history of Anesthesia complication Social History Smoking and tobacco/nicotine status: never used tobacco/nicotine Alcohol intake: never Substance/Drug Use: never Physical Exam 2 Narrative: EXAM NARRATIVE: General: Alert, no acute distress. Skin: Warm, dry. Head: Normocephalic, atraumatic. Neck: Supple, trachea midline. Eye: Extraocular movements are intact. Ears, nose, mouth and throat: mucosa moist. Cardiovascular: Regular, Normal peripheral perfusion. Respiratory: Lungs are clear to auscultation, respirations are non-labored, breath sounds are equal, Symmetrical chest wall expansion. Gastrointestinal: Soft, Nontender, Non distended Musculoskeletal: Normal ROM, no deformity. Neurological: Alert and oriented, No focal neurological deficit observed. Psychiatric: Cooperative, appropriate mood & affect. Course 2 Vital Signs: Vital signs: Vital Signs Temperature 98.0 F 07/11/24 02:27 Pulse Rate 58 L 07/11/24 05:00 Respiratory Rate 21 H 07/11/24 05:00 Blood Pressure 167/87 07/11/24 04:59 Pulse Oximetry 96 07/11/24 05:00 Oxygen Delivery Me thod Room Air 07/11/24 02:27 MDM - Chest Pain Medical Decision Making Medical decision making: Differential diagnosis including but not limited to and based on the above HPI, review of systems and physical exam: Patient presents with hypertension: Essential hypertension. Stroke. acute coronary syndrome. kidney failure. congestive heart failure. anxiety Orders placed to evaluate differential diagnosis based on the above differential, HPI and physical exam Chest x-ray: No acute process. No infiltrate. No pneumothorax. This was reviewed and interpreted by myself the emergency room physician. I also reviewed the radiology report. EK:09 AM. Rate 64. Normal sinus rhythm, No ST-T changes, no ectopy, normal UT & QRS intervals, This was reviewed and interpreted by myself the ER physician at 2:11 AM. Repeat EKG: Time 4:22 AM. Rate 60. Normal sinus rhythm, No ST-T changes, no ectopy, normal UT & QRS intervals, This was reviewed and interpreted by myself the ER physician at 4:24 AM. No significant changes from EKG done previously today in the emergency room. Lab Review: Laboratory results were reviewed and interpreted by myself the emergency room physician. No leukocytosis. No anemia. No renal failure. Initial troponin is almost normal 11, however the second troponin has gone up slightly to 20. Given her symptoms and difficulty controlling her blood pressure going to place her in [place]. I reviewed the patient's medical record. Reexamination: Patient continues to have some burping. Some mild chest discomfort. Blood pressure really did not improve a lot after clonidine. Troponin is gone up so giving an aspirin and nitro. Consultation: I spoke with Dr. Prieto who agrees to admission to observation. Assessment and plan: Accelerated hypertension Chest pain Elevated troponin ?Clonidine initially. Very little change in blood pressure. Or symptoms. Then nitro, aspirin and Pepcid are given. -I discussed the patient with the hospitalist on-call who is admitting the patient. - Discussed findings and plan with patient. Answered any questions. - All laboratory values were reviewed and interpreted personally by myself, the ER physician - All imaging was reviewed and interpreted personally by myself, the ER physician. - Evaluation and treatment of this problem were appropriate in the emergency setting Lab Data 07/11/24 02:26 07/11/24 02:26 Radiology Impressions Chest X-Ray 07/11/24 01:55 IMPRESSION: No acute findings. Laboratory Results WBC 10.35 10^3/uL (3.29-11.43) 07/11/24 02:26 RBC 4.92 10^6/uL (3.85-5.65) 07/11/24 02:26 Hgb 14.70 g/dL (11.27-16.99) 07/11/24 02:26 Hct 44.2 % (36-47) 07/11/24 02:26 MCV 89.8 fl (85-98) 07/11/24 02:26 MCH 29.9 pg (27-33) 07/11/24 02:26 MCHC 33.3 g/dL (30-55) 07/11/24 02:26 RDW 12.5 % (12.1-15.1) 07/11/24 02:26 Plt Count 420 10^3/cmm (157-399) H 07/11/24 02:26 MPV 9.9 fL (7.4-10.4) 07/11/24 02:26 Neut % (Auto) 68.9 % 07/11/24 02:26 Lymph % (Auto) 20.2 % 07/11/24 02:26 Barbour % (Auto) 8.0 % 07/11/24 02:26 Eos % (Auto) 1.7 % 07/11/24 02:26 Baso % (Auto) 0.8 % 07/11/24 02:26 Neut # (Auto) 7.13 10^3/uL (1.8-7.7) 07/11/24 02:26 Lymph # (Auto) 2.1 10^3/uL (0.8-4.8) 07/11/24 02:26 Barbour # (Auto) 0.8 10^3/uL (0.2-0.9) 07/11/24 02:26 Eos # (Auto) 0.2 10^3/uL (0.0-0.8) 07/11/24 02:26 Baso # (Auto) 0.1 10^3/uL (0.0-0.1) 07/11/24 02:26 Nucleated RBC % (auto) 0 % 07/11/24 02:26 Nucleated RBCs # 0.0 /100WBC 07/11/24 02:26 Sodium 137 mmol/L (136-145) 07/11/24 02:26 Potassium 4.5 mmol/L (3.5-5.1) 07/11/24 02:26 Chloride 97 mmol/L (98-107) L 07/11/24 02:26 Carbon Dioxide 29 mmol/L (22-29) 07/11/24 02:26 Anion Gap 15.5 (5-19) 07/11/24 02:26 BUN 14 mg/dL (8-23) 07/11/24 02:26 Creatinine 0.8 mg/dL (0.5-0.9) 07/11/24 02:26 GFR Calculation 73.2 mL/min (90-130) L 07/11/24 02:26 Glucose 127 mg/dL (65-115) H 07/11/24 02:26 Calculated Osmolality 286 mOsm/kg (285-295) 07/11/24 02:26 Calcium 10.3 mg/dL (8.5-10.5) 07/11/24 02:26 Total Bilirubin 0.2 mg/dL (0.15-1.2) 07/11/24 02:26 AST 24 U/L (0-32) 07/11/24 02:26 ALT 57 U/L (0-33) H 07/11/24 02:26 Alkaline Phosphatase 125 U/L (35-105) H 07/11/24 02:26 Troponin T Baseline 11 ng/L (0-10) H 07/11/24 02:26 Troponin T 120 Minute 20.95 ng/L (0-10) H 07/11/24 04:20 Delta Troponin T 9.95 ABS# (0-10) 07/11/24 04:20 Total Protein 7.1 g/dL (6.6-8.7) 07/11/24 02:26 Albumin 4.5 g/dL (3.5-5.2) 07/11/24 02:26 Globulin 2.6 g/dL (1.3-4.6) 07/11/24 02:26 Lipase 50 U/L (13-60) 07/11/24 02:26 All radiology interpretation(s) finalized by discharge Discharge Plan Discharge Patient Disposition: Placed in Observation Clinical Impression: Accelerated hypertension, Chest pain, Elevated troponin Discharge Diet: Usual diet Discharge Activity: Increase activity as tolerated Coding Level of Care Code ED Aquaculture And Fisheries Professor for Megan Reno
[2024-07-11] MEDS: cloNIDine 0.1 mg Tablet PO (03:19)
[2024-07-11 03:20] LABS: Alanine Aminotransferase 57 U/L (0-33); Albumin Level 4.5 g/dL (3.5-5.2); Alkaline Phosphatase 125 U/L (35-105); Anion Gap 15.5 (5-19); Aspartate Amino Transferase 24 U/L (0-32); Blood Urea Nitrogen 14 mg/dL (8-23); Calcium 10.3 mg/dL (8.5-10.5); Carbon Dioxide 29 mmol/L (22-29); Chloride 97 mmol/L (98-107); Creatinine Clr Calc Pharmacy 77.8595; Globulin 2.6 g/dL (1.3-4.6); Glomerular Filtration Rate 73.2 mL/min (90-130); Glucose 127 mg/dL (65-115); Lipase 50 U/L (13-60); Osmolality Calculated 286 mOsm/kg (285-295); Potassium 4.5 mmol/L (3.5-5.1); Sodium 137 mmol/L (136-145); Total Bilirubin 0.2 mg/dL (0.15-1.2); Total Protein 7.1 g/dL (6.6-8.7)
--- NOTE | 2024-07-11 03:55 | ECG_ITS ---
[facility] Date: 2024-07[facility]11 Pat Name: Ángela Christiansen Department: Room: Gender: Female Electronic Parts Salesperson: : 1965 Requested By: Samantha Smith Order Number: [id number]-Marie Gomez MD: Joni Sawant M.D. Measurements Intervals [place] Rate: 60 P: 47 MI: 173 QRS: -17 QRSD: 108 T: 13 QT: 404 QTc: 405 Interpretive Statements SINUS RHYTHM POSSIBLE LEFT ATRIAL ENLARGEMENT [-0.1mV P-WAVE IN V1/V2] POSSIBLE LEFT VENTRICULAR HYPERTROPHY [VOLTAGE CRITERIA PLUS LAE OR QRS WIDENING] Compared to ECG 02/25/2021 03:38:34 ST (T wave) deviation no longer present Electronically Signed On 07-12-2024 00:02:39 GUNSTOCK SPRAY UNIT ADJUSTER by Joni Sawant M.D. [email or web address]
[2024-07-11 04:45] LABS: Troponin 5 2HR 20.95 ng/L (0-10); Troponin 5 2HR Delta 9.95 ABS# (0-10)
[2024-07-11] MEDS: aspirin 81 mg Chew Tablet 324 MG PO (05:20)
[2024-07-11] MEDS: nitroglycerin 0.4 mg sublingual Tablet SUBLINGUAL (05:21)
[2024-07-11] MEDS: famotidine 20 mg/2 mL INJ 40 MG IVP (05:21)
--- NOTE | 2024-07-11 05:38 | CTR_ITS ---
PROCEDURE INFORMATION: Exam: CTA Chest Without And With Contrast Exam date and time: 07/11/2024 6:49 AM Age: 59 years old Clinical indication: Other: Back pain; Additional info: Aortic dissection, back pain, HTN TECHNIQUE: Imaging protocol: Computed tomographic angiography of the chest without and with contrast. Exam focused on the arteries. 3D rendering (Not supervised by radiologist): MIP and/or 3D reconstructed images were created by the technologist. Radiation optimization: All CT scans at this facility use at least one of these dose optimization techniques: automated exposure control; mA and/or kV adjustment per patient size (includes targeted exams where dose is matched to clinical indication); or iterative reconstruction. Contrast material: OMNIPAQUE 350; Contrast volume: 100 ml; Contrast route: INTRAVENOUS (IV); COMPARISON: CR (CHEST, ) 07/11/2024 2:16 AM RADIATION DOSE METRICS: Total DLP (mGy-cm): 841.92 FINDINGS: Pulmonary arteries: Normal. No pulmonary emboli. Aorta: Mild systemic atherosclerosis without aortic aneurysm. No aortic dissection. Lungs: Mild dependent atelectasis. Mild bibasilar platelike atelectasis versus scarring. No consolidation or mass. Pleural spaces: Unremarkable. No pneumothorax. No pleural effusion. Heart: Unremarkable. No cardiomegaly. No pericardial effusion. Lymph nodes: Unremarkable. No enlarged lymph nodes. Bones/joints: No acute fracture. Mild degenerative changes along the spine. T10 vertebral body intraosseous hemangioma. Soft tissues: Unremarkable. CT/CT angio chest [id number] IMPRESSION: No acute findings. Specifically, no aortic dissection.
--- NOTE | 2024-07-11 05:42 | USCV_ITS ---
Ángela Christiansen Age: 59 Gender: F : 1965 Exam Date: 07/11/2024 08:03 Ordering Phys: Bladimir Prieto MD Technologist: Exam Location: [facility] – [place] Indication: BP: 151 / 80 HR: 69 Rhythm: Sinus Technical Quality: Adequate MEASUREMENTS (Male / Female) Normal Values 2D ECHO LV Diastolic Diameter PLAX 3.8 cm 4.2 - 5.9 / 3.9 - 5.3 cm IVS Diastolic Thickness 1.2 cm 0.6 - 1.0 / 0.6 - 0.9 cm IVS Systolic Thickness 1.6 cm LVPW Diastolic Thickness 1.1 cm 0.6 - 1.0 / 0.6 - 0.9 cm LVPW Systolic Thickness 1.9 cm LVOT Diameter 2.0 cm LV Ejection Fraction 2D Teich 65.7 % LV Ejection Fraction MOD 4C 62.4 % LA Diameter 3.6 cm RA Systolic Volume 4C AL 56.7 ml RA Systolic Volume 4C MOD 54.4 ml Aorta at Sinotubular Diameter 2.2 cm IVC Diameter 2.8 cm M-MODE LA Ao Ratio MM 1.2 AV Cusp Separation MM 1.9 cm DOPPLER AV Peak Velocity 120.0 cm/s LVOT Peak Velocity 68.0 cm/s AV Area Cont Eq vti 1.8 cm squared AV Area Cont Eq pk 1.9 cm squared MV Peak Velocity 101.0 cm/s TV Peak Velocity 227.0 cm/s TR Peak Velocity 241.0 cm/s TR Peak Gradient 23.2 mmHg TV Peak E Velocity 74.0 cm/s PV Peak Velocity 75.0 cm/s FINDINGS Left Ventricle Normal left ventricular size and systolic function, EF 66% . Mild left ventricular hypertrophy. No regional wall motion abnormalities. Grade I/IV diastolic dysfunction (abnormal relaxation filling pattern), normal to mildly elevated filling pressures. Right Ventricle The right ventricle is normal in size and function. Right Atrium The right atrium is normal in size. Left Atrium Mildly increased left atrial size. Mitral Valve Mild mitral valve regurgitation. Aortic Valve No gross abnormalities noted Tricuspid Valve Mild tricuspid valve regurgitation. Estimated pulmonary artery peak systolic pressure 26 mmHg Pulmonic Valve No gross abnormalities noted Pericardium Normal pericardium without effusion. Aorta Normal ascending aorta dimension. IVC The inferior vena cava appears normal. CONCLUSIONS Normal left ventricular size and systolic function, EF 66% . Mild left ventricular hypertrophy. No regional wall motion abnormalities. Grade I/IV diastolic dysfunction (abnormal relaxation filling pattern), normal to mildly elevated filling pressures. Mildly increased left atrial size. Mild mitral and tricuspid regurgitation There is no pericardial effusion. There are no intracardiac masses. Compared to the study from 07/12/2021, there may not be a significant change. Dr Joni Sawant MD FACC (Electronically Signed) Final Date: 12 July 2024 15:52 S
--- NOTE | 2024-07-11 05:45 | ECG_ITS ---
[facility] Test Date: 2024-07-12 Pat Name: Ángela Christiansen Department: Room: 103 Gender: Female Inspector Subassembly: : 1965 Requested By: Bladimir Prieto Order Number: [id number] Patricia MD: Joni Sawant M.D. Interpretive Statements Lung unchanged pre/post procedure; Intraprocedure shortess of breath; Symptoms resoled by discharge PROCEDURE: At the baseline, the EKG revealed normal sinus rhythm with a poor R wave progression. Left axis deviation. Voltage EKG for LVH.. The baseline heart was 83 bpm with a blood pressue of 117/80 mm of Hg Lexiscan was infused over a period of 20 seconds. A total of 0.4 milligrams of Lexiscan was infused. The stress phase was continued for a total of 5 minutes. Heart rate at the end of the stress phase was 116 bpm with a blood pressure 127/73 mm of Hg. The EKG at the peak infusion revealed no significant changes. Sestamibi was injected 20 seconds after the Lexiscan infusion. Heart rate at the end of the recovery phase was 113 bpm with a blood pressure of 126/78 mm of Hg. CONCLUSION: 1. No significant EKG changes with the LexiScan infusion 2. No LexiScan induced chest pain or cardiac arrhythmia 3. Normal blood pressure and heart rate response 4. Sestamibi/sestamibi perfusion scan pending; see separate report. Electronically Signed On 07-12-2024 13:11:14 PERSONNEL SUPERVISOR by Joni Sawant M.D. [email or web address]
--- NOTE | 2024-07-11 05:46 | PM.HP ---
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 Currently patient is alert oriented x 3, following all commands, complains of pain between her shoulder blades, and anterior chest discomfort. Patient tells me that today at roughly 1030 she went to bed, but before she went to bed she noticed that her systolic blood pressure was over 190 diastolic was over 110 so she took an extra 25 mg of metoprolol. She woke up about an hour later rechecked her blood pressure and it was still 190/110 so she took another dose of 25 mg of metoprolol went to bed. She woke up early this morning with severe pain radiating to her back, between her shoulder blades, he then developed anterior chest discomfort, in the center of her chest, feeling like it was almost indigestion, she presented to [facility] for evaluation blood pressure on arrival 175/103, currently the pain between her shoulder blades is severe, but she is resting in bed, she also has some anterior chest discomfort, is receiving nitroglycerin, EKG no acute ST-T wave changes, 120-minute troponin 20.95 delta 9.95. She denies any headache, no blurry vision, no nausea, no vomiting, no visual deficits, no focal neurologic deficits Review of Systems Const: Denies: fever(s) Card: Reports: chest pain Resp: Denies: dyspnea Medications/Allergies Home Medications Medication Instructions Recorded Confirmed Last Taken Type acetaminophen 325 mg capsule 325 mg PO QID PRN 03/03/21 04/10/24 Unknown History aspirin 325 mg tablet 325 mg PO DAILY 03/03/21 04/10/24 Unknown History multivitamin 1 tab PO DAILY 03/03/21 04/10/24 Unknown History cetirizine 5 mg-pseudoephedrine ER 1 tab PO BID PRN 11/04/21 04/10/24 Unknown History 120 mg tablet,extended release,12hr (Allergy Relief-D (cetirizine)) levetiracetam 1,000 mg tablet 750 mg PO BID 05/17/23 04/10/24 Unknown History ascorbic acid (vitamin C) 1,000 mg 1 g PO DAILY 04/10/24 04/10/24 Unknown History capsule metoprolol tartrate 25 mg tablet 25 mg PO BID #180 tabs 04/10/24 04/10/24 Unknown Rx clonidine HCl 0.1 mg tablet 0.1 mg PO Q8H PRN hypertensive 07/11/24 Unknown Rx emergency #20 tabs Allergies Allergy/AdvReac Type Severity Reaction Status Date / Time No Known Allergies Allergy Verified 04/10/24 09:02 PFSH Acute PFSH: Medical History Pneumonia due to Streptococcus, group b Nontraumatic subarachnoid hemorrhage, unspecified Acute spontaneous subarachnoid intracranial hemorrhage Acute respiratory failure with hypoxia Nontraumatic subdural hemorrhage, unspecified Acute encephalopathy SVT (supraventricular tachycardia) Brain aneurysm Surgical History H/O craniotomy Family History Other CAD (coronary artery disease) Denies family history of Anesthesia complication Social History Smoking and tobacco/nicotine status: never used tobacco/nicotine Alcohol intake: never Substance/Drug Use: never Vitals/I&O/Wt Last Vital Signs Temp 98.0 F 07/11/24 02:27 Pulse 58 L 07/11/24 05:00 Resp 21 H 07/11/24 05:00 BP 167/87 07/11/24 04:59 Pulse Ox 96 07/11/24 05:00 O2 Del Method Room Air 07/11/24 02:27 07/10/24 07/10/24 07/11/24 14:59 22:59 06:59 Intake Total 0 / 0 Balance 0 / 0 Weight last 48 hrs Weight 79.379 kg Physical Exam Const: COMMON NORMALS: no acute distress and patient oriented x3 HENMT: COMMON NORMALS: normocephalic HEAD & SCALP: normocephalic Neck/C-Spine: COMMON NORMALS: no JVD Resp: COMMON NORMALS: normal respiratory effort, No retractions, No use of accessory muscles and clear to auscultation bilaterally AUSCULTATION: clear to auscultation bilaterally Cardio: COMMON NORMALS: regular rate, regular rhythm, S1 normal heart sound present and S2 normal heart sound present RATE: regular rate RHYTHM: regular rhythm HEART SOUNDS: S1 normal heart sound present and S2 normal heart sound present GI: COMMON NORMALS: Normal to inspection, nondistended, normoactive bowel sounds present, Soft to palpation and non-tender Extremity: COMMON NORMALS: no calf tenderness and no pedal edema Neuro: COMMON NORMALS: patient oriented x3, CN's II-XII intact bilaterally and moves all extremities Psych: COMMON NORMALS: mental status grossly normal Data 07/11/24 02:26 07/11/24 02:26 A&P Assessment and plan (1) Accelerated hypertension: (2) Chest pain: Plan Chest pain -Initial EKG no acute ST-T wave changes, 120-minute troponin 20 no significant delta troponin -She was quite hypertensive when she came in Plan -Given her history of cerebral aneurysms, resulting in stroke, requiring coiling, stenting, and given her initial pain complaints between the shoulder blade, we will do a CTA of the aorta to rule out aortic dissection or aneurysm -Continue aspirin -Continue statin -Continue metoprolol, she did take a total of 100 mg of metoprolol yesterday, 25 mg the morning and 75 mg in total at night, she is currently bradycardic, heart rates in the high 50s, I am going to for now continue her home dose of 25 mg p.o. twice daily -Cardiac echo -Plan on cardiac stress test tomorrow morning -Continue to monitor serial EKGs, serial troponins, telemetry monitoring -Will discuss with cardiology in the morning -Full code -Lovenox for DVT prophylaxis Attestations Medical Necessity Statement*: Patient requires hospitalization for chest pain, NSTEMI, outpatient with observation Diagnoses Accelerated hypertension I10 Chest pain R07.9
[2024-07-11 06:08] LABS: Estmated Average Glucose 126
[2024-07-11 06:14] LABS: Chol HDL Ratio 4.72 mg/dL (0.0-4.40); Cholesterol 184 mg/dL (0-200); HDL Cholesterol 39 mg/dL (60-100); LDL Cholesterol Calculated 97 mg/dL (50-129); LDL HDL Ratio 2.49 RATIO (0.00-3.22); NT Pro B Type Natriuretic Pept 107 pg/mL (0-125); Thyroid Stimulating Hormone 4.18 uIU/mL (0.27-4.20); Triglycerides 240 mg/dL (0-150)
[2024-07-11] MEDS: iohexol 350 mg/mL 500 mL Btl (per mL) IV (06:53)
--- NOTE | 2024-07-11 07:57 | ECG_ITS ---
[facility] Test Date: 2024-07-11 Pat Name: Ángela Christiansen Department: Room: Gender: Female Daytime Babysitter: : 1965 Requested By: Samantha Smith Order Number: [id number] Patricia MD: Joni Sawant M.D. Measurements Intervals [place] Rate: 51 P: 43 ME: 176 QRS: -12 QRSD: 92 T: 1 QT: 448 QTc: 413 Interpretive Statements SINUS BRADYCARDIA POSSIBLE LEFT ATRIAL ENLARGEMENT [-0.1mV P-WAVE IN V1/V2] POSSIBLE LEFT VENTRICULAR HYPERTROPHY [VOLTAGE CRITERIA PLUS LAE OR QRS WIDENING] Compared to ECG 07/11/2024 04:22:27 Sinus rhythm no longer present Electronically Signed On 07-12-2024 00:02:44 CCNP by Joni Sawant M.D. [email or web address]
[2024-07-11] MEDS: levETIRAcetam 500 mg Tablet 750 MG PO ×2 (09:14→18:05)
[2024-07-11 09:41] LABS: Troponin 5 6HR 18.92 ng/L (0-10); Troponin 5 6HR Delta 7.92 ng/L (0-12)
[2024-07-11] MEDS: pantoprazole 40 mg SDV IVP (10:30)
--- NOTE | 2024-07-11 13:43 | W.PM.EVENTAC ---
Event Note Event Note: Admitted earlier today morning for uncontrolled hypertension and chest pain. On examination seen with multiple family was at bedside. Patient fairly frustrated that she has to wait in the ER and was not able to get stress test done today. Discussed the need for continued admission for adjustment of antihypertensive along with possible stress test as an outpatient. Discussed options of adjusting antihypertensive on discharge today and follow-up as an outpatient for cardiac stress test versus adjusting antihypertensive while inpatient and stress test tomorrow. Patient convinced by her family members to stay for stress test in AM. Goal blood pressure less than 140/90 mmHg. Continue with home dose of metoprolol. Counseled patient to not take higher dose of metoprolol for high blood pressure but only for SVT as explained by Dr. Sheppard in his office. Add amlodipine 5 mg oral daily. N.p.o. after midnight. Lexiscan stress test in AM. Appreciate A1c, lipid panel. Continue other chronic home medications. Follow-up echocardiogram. Event Notes Attestations Time Spent in Patient Care: Requires further hospitalization for management of uncontrolled hypertension, bradycardia, chest pain while ACS is ruled out with a Lexiscan stress test
[2024-07-11 14:20] LABS: Iron 55 ug/dL (37-145); Percent Saturation 18.6 % (20-50); Total Iron Binding Capacity 295 mcg/dl; Unsaturated Iron Binding 240 ug/dL (112-347)
[2024-07-11 14:36] LABS: Vitamin B12 646 pg/mL (232-1245)
[2024-07-11] MEDS: metoprolol tartrate 25 mg Tablet PO (21:27)
[2024-07-12] VITALS: BP 120/64; PULSE 77; RESP 21; TEMP 37; O2SAT 97
[2024-07-12 03:57] VITALS: BP 109/64; PULSE 101; RESP 23; TEMP 36.9; O2SAT 93
[2024-07-12 05:38] LABS: Basophils % 0.4 %; Eosinophils # 0.1 10^3/uL (0.0-0.8); Eosinophils % 0.6 %; Hematocrit 42.6 % (36-47); Lymphocytes # 1.4 10^3/uL (0.8-4.8); Lymphocytes % 13.5 %; Mean Corpuscular HGB Conc 34.3 g/dL (30-55); Mean Corpuscular Hemoglobin 30.2 pg (27-33); Mean Platelet Volume 9.7 fL (7.4-10.4); Monocytes % 9.9 %; Neutrophils # 7.73 10^3/uL (1.8-7.7); Neutrophils % 75.3 %; Nucleated Red Blood Cells % 0 %; Platelet Count 366 10^3/cmm (157-399); Red Blood Count 4.84 10^6/uL (3.85-5.65); Red Cell Distribution Width 12.8 % (12.1-15.1); White Blood Count 10.26 10^3/uL (3.29-11.43)
--- NOTE | 2024-07-12 05:45 | NMCV_ITS ---
NM daniel perf SPECT r/s* [id number] Ángela Christiansen Age: 59 Gender: F : 1965 Exam Date: 07/12/2024 06:34 Ordering Phys: Bladimir Prieto MD Technologist: CARLOS Holland Exam Location: [facility] Indications: CP STRESS TEST Please see separate stress test report in [facility] for full findings IMAGE PROTOCOL Rest/Stress 1 Lexiscan Day Radiopharmaceutical Dose (mCi) Administration Site Administered by Rest: Tc-99m 10.7 IV CARLOS Solis Sestamibi Stress:Tc-99m 32.8 IV CARLOS Holland Sestamiluba Rest: 12-Jul-2024 60 Discovery 630 Stress: 12-Jul-2024 30 Discovery 630 0.4mg Lexiscan. Images obtained in supine and prone position. SPECT RESULTS Technical Quality: Good Raw Data Analysis: Normal Image Corrections: No attenuation or motion correction applied Summed Stress Score: 0 Summed Rest Score: 1 Summed Difference Score: 0 PERFUSION FINDINGS Fairly uniform myocardial tracer uptake with no significant Perfusion normalities FUNCTIONAL RESULTS (calculated via Gated SPECT) Stress Image LV EF (%): 81 Stress EDV (mL):36 TID: 0.95 Stress ESV (mL):7 FUNCTIONAL FINDINGS: Segmental wall motion analysis revealing no gross wall motion abnormalities IMPRESSIONS 1. Myocardial perfusion imaging revealing uniform myocardial tracer uptake with no significant perfusion abnormalities 2. Normal LV ejection fraction of 81%. 3. LV wall motion analysis revealing no gross wall motion abnormalities. 4. Normal LV volume Low probability for coronary ischemia, based on the above findings Dr Joni Sawant MD [facility] (Electronically Signed) Final Date: 12 July 2024 08:52 S
[2024-07-12] MEDS: pantoprazole 40 mg SDV IVP (05:51)
[2024-07-12 06:00] VITALS: PULSE 99
[2024-07-12 06:00] LABS: Alanine Aminotransferase 444 U/L (0-33); Albumin Level 3.9 g/dL (3.5-5.2); Alkaline Phosphatase 156 U/L (35-105); Anion Gap 15.9 (5-19); Aspartate Amino Transferase 356 U/L (0-32); Blood Urea Nitrogen 12 mg/dL (8-23); Calcium 8.9 mg/dL (8.5-10.5); Carbon Dioxide 29 mmol/L (22-29); Chloride 98 mmol/L (98-107); Creatinine Clr Calc Pharmacy 90.3531; Globulin 2.8 g/dL (1.3-4.6); Glomerular Filtration Rate 85.4 mL/min (90-130); Glucose 124 mg/dL (65-115); Osmolality Calculated 289 mOsm/kg (285-295); Potassium 3.9 mmol/L (3.5-5.1); Sodium 139 mmol/L (136-145); Total Bilirubin 1.4 mg/dL (0.15-1.2); Total Protein 6.7 g/dL (6.6-8.7)
[2024-07-12 06:38] LABS: Folate Level > 20.0 ng/mL (4.8-37.3)
[2024-07-12] MEDS: regadenoson 0.4 Mg/5 ml Syringe IVP (06:58)
[2024-07-12 07:18] VITALS: BP 126/78; PULSE 114
[2024-07-12] MEDS: ondansetron 2 mg/ML SDV 2 mL 4 MG IVP (07:20)
[2024-07-12 08:00] VITALS: BP 122/72; PULSE 86; RESP 24; TEMP 36.6; O2SAT 92
[2024-07-12] MEDS: levETIRAcetam 500 mg Tablet 750 MG PO (08:53)
[2024-07-12] MEDS: amlodipine 5 mg Tablet PO (08:53)
[2024-07-12] MEDS: aspirin 325 mg EC Tablet PO (08:53)
[2024-07-12] MEDS: metoprolol tartrate 25 mg Tablet PO (09:02)
--- NOTE | 2024-07-12 09:24 | PC.CHAP ---
Pastoral Care Encounter/Spiritual Assessment Type of Contact [] Declined adult school counselor visit [] Patient/Family/Request visit [] Outpatient visit [] Follow-up visit [] Physician referral [] Code/Alert [X] Routine visit [] Staff referral [] Actively dying [] Patient sleeping [] Family support [] [] Out of room [] Palliative care [] [] Receiving care in room [] Pre-surgical visit [] Trauma [] Long length of stay [] ICU visit [] Other: Relational/Emotional Strength [X] Patient feels connected with others/family/visitors/staff [] Distress [] Loneliness/isolation [] Abandonment Spirituality of Patient [X] Person of [place] [] Attends Muslim of their [place] [X] Believes in Prayer [] Reads Bible or Mandaeism materials [] There are Spiritual issues to be addressed Circular [place] Interventions [X] Prayer [X] Active listening [X] Non-anxious presence [] Spiritual/emotional support [] Crisis/trauma care [] Spiritual counseling [] Bereavement support [] Provided bereavement packet [] Provided Bible/devotional materials [] Provided toy/stuffed animal, coloring book to patient or family member [] Provided Communion [] Anointing/[place] [] Salvation [] Completed spiritual assessment [] Other: Impact on Illness or Injury [] Angry [] Fearful [] Anxious [] Often cries [] Exhaustion [] Unable to work [] Unable to attend buddhist [] Unable to walk/stand [] Unable to read [] Unable to drive [] Unable to eat/drink [] Unable to sleep [] Unable to be with family [] Patient intubated [] Other: Summary P +1 Time spent with patient 30
--- NOTE | 2024-07-12 09:37 | P.DS_ITS ---
Discharge Providers Date of Admission: 07/11/24 08:39 Date of Discharge: July 12, 2024 Attending Provider at Admission: Rudi Vega MD Attending Provider at Discharge: Rudi Vega MD Primary Care Provider: Floresita Wills Diagnoses at Discharge Discharge Diagnosis (1) Accelerated hypertension: Status: Acute (2) Chest pain: Status: Acute Reason for Visit Reason for Visit: HIGH BP Brief History: History as per HPI: Ángela Christiansen is a 59 year old female with a past medical history of multiple brain aneurysms requiring coiling, endovascular stenting, 1 of which resulted in a stroke prolonged intubation and hospital stay, resulting in craniotomy, cerebral edema, 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 Currently patient is alert oriented x 3, following all commands, complains of pain between her shoulder blades, and anterior chest discomfort. Patient tells me that today at roughly 1030 she went to bed, but before she went to bed she noticed that her systolic blood pressure was over 190 diastolic was over 110 so she took an extra 25 mg of metoprolol. She woke up about an hour later rechecked her blood pressure and it was still 190/110 so she took another dose of 25 mg of metoprolol went to bed. She woke up early this morning with severe pain radiating to her back, between her shoulder blades, he then developed anterior chest discomfort, in the center of her chest, feeling like it was almost indigestion, she presented to [facility] for evaluation blood pressure on arrival 175/103, currently the pain between her shoulder blades is severe, but she is resting in bed, she also has some anterior chest discomfort, is receiving nitroglycerin, EKG no acute ST-T wave changes, 120- minute troponin 20.95 delta 9.95. She denies any headache, no blurry vision, no nausea, no vomiting, no visual deficits, no focal neurologic deficits Hospital Course Hospital Course Patient was admitted to the hospital further evaluation and management of high blood pressure and chest pain. Her antihypertensive during hospitalization were adjusted. She did not have any further episode of chest pain. She underwent cardiac stress test on 07/12 which was negative for acute ischemia. During hospitalization she was found to have abnormal lipid panel for which she was advised to start on statins but she would want to hold off for now and follow-up in 6 months with repeat labs before starting medications. She has been discharged in medically stable condition with advised to continue her metoprolol 25 mg twice daily and start on amlodipine 5 mg oral daily. She is to check her blood pressure daily at home maintain a blood pressure diary with goal of less than 140/90 MAG. She should follow-up with a primary care provider within next 2 weeks with a blood pressure diary for further adjustment of antihypertensive. Physical Exam Const: COMMON NORMALS: no acute distress and patient oriented x3 HENMT: COMMON NORMALS: normocephalic HEAD & SCALP: normocephalic Neck/C-Spine: COMMON NORMALS: no JVD Resp: COMMON NORMALS: normal respiratory effort, No retractions, No use of accessory muscles and clear to auscultation bilaterally AUSCULTATION: clear to auscultation bilaterally Cardio: COMMON NORMALS: no JVD, regular rate, regular rhythm, S1 normal heart sound present and S2 normal heart sound present RATE: regular rate RHYTHM: regular rhythm HEART SOUNDS: S1 normal heart sound present and S2 normal heart sound present GI: COMMON NORMALS: Normal to inspection, nondistended, normoactive bowel sounds present, Soft to palpation and non-tender PALPATION: Yes Soft to palpation Extremity: COMMON NORMALS: no calf tenderness and no pedal edema Neuro: COMMON NORMALS: patient oriented x3, CN's II-XII intact bilaterally and moves all extremities Psych: COMMON NORMALS: mental status grossly normal Discharge Data Studies Completed and Pending Completed Studies During Hospitalization Category Date Time Status CT angio chest [id number] Stat Cat Scan 07/11/24 05:38 Completed Sestamibi Stress Test Request Routine Exams 07/11/24 05:45 Draft XR chest 1V portable [id number] Stat Exams 07/11/24 01:55 Completed NM daniel perf SPECT r/s* [id number] Routine Nuc Med 07/12/24 05:45 Completed Pending at discharge Category Date Time Status MAG [Magnesium] AM LABS Lab 07/13/24 04:00 Ordered MAG [Magnesium] AM LABS Lab 07/14/24 04:00 Ordered CV. echo complete* [id number] Stat Ultrasound 07/11/24 05:42 Taken Radiology Impressions Chest X-Ray 07/11/24 01:55 IMPRESSION: No acute findings. Chest CTA 07/11/24 05:38 IMPRESSION: No acute findings. Specifically, no aortic dissection. Lexiscan stress test: PERFUSION FINDINGS Fairly uniform myocardial tracer uptake with no significant Perfusion normalities FUNCTIONAL RESULTS (calculated via Gated SPECT) Stress Image LV EF (%): 81 Stress EDV (mL):36 TID: 0.95 Stress ESV (mL):7 FUNCTIONAL FINDINGS: Segmental wall motion analysis revealing no gross wall motion abnormalities IMPRESSIONS 1. Myocardial perfusion imaging revealing uniform myocardial tracer uptake with no significant perfusion abnormalities 2. Normal LV ejection fraction of 81%. 3. LV wall motion analysis revealing no gross wall motion abnormalities. 4. Normal LV volume Low probability for coronary ischemia, based on the above findings Dr Joni Sawant MD [facility] (Electronically Signed) Final Date: 12 July 2024 Laboratory Results WBC 10.26 10^3/uL (3.29-11.43) 07/12/24 05:15 RBC 4.84 10^6/uL (3.85-5.65) 07/12/24 05:15 Hgb 14.60 g/dL (11.27-16.99) 07/12/24 05:15 Hct 42.6 % (36-47) 07/12/24 05:15 MCV 88.0 fl (85-98) 07/12/24 05:15 MCH 30.2 pg (27-33) 07/12/24 05:15 MCHC 34.3 g/dL (30-55) 07/12/24 05:15 RDW 12.8 % (12.1-15.1) 07/12/24 05:15 Plt Count 366 10^3/cmm (157-399) 07/12/24 05:15 MPV 9.7 fL (7.4-10.4) 07/12/24 05:15 Neut % (Auto) 75.3 % 07/12/24 05:15 Lymph % (Auto) 13.5 % 07/12/24 05:15 [place] % (Auto) 9.9 % 07/12/24 05:15 Eos % (Auto) 0.6 % 07/12/24 05:15 Baso % (Auto) 0.4 % 07/12/24 05:15 Neut # (Auto) 7.73 10^3/uL (1.8-7.7) H 07/12/24 05:15 Lymph # (Auto) 1.4 10^3/uL (0.8-4.8) 07/12/24 05:15 [place] # (Auto) 1.0 10^3/uL (0.2-0.9) H 07/12/24 05:15 Eos # (Auto) 0.1 10^3/uL (0.0-0.8) 07/12/24 05:15 Baso # (Auto) 0.0 10^3/uL (0.0-0.1) 07/12/24 05:15 Nucleated RBC % (auto) 0 % 07/12/24 05:15 Nucleated RBCs # 0.0 /100WBC 07/12/24 05:15 Sodium 139 mmol/L (136-145) 07/12/24 05:15 Potassium 3.9 mmol/L (3.5-5.1) 07/12/24 05:15 Chloride 98 mmol/L (98-107) 07/12/24 05:15 Carbon Dioxide 29 mmol/L (22-29) 07/12/24 05:15 Anion Gap 15.9 (5-19) 07/12/24 05:15 BUN 12 mg/dL (8-23) 07/12/24 05:15 Creatinine 0.7 mg/dL (0.5-0.9) 07/12/24 05:15 GFR Calculation 85.4 mL/min (90-130) L 07/12/24 05:15 Glucose 124 mg/dL (65-115) H 07/12/24 05:15 Estimat Average Glucose 126 07/11/24 02:26 Hemoglobin A1c 6.0 % (4.0-6.0) 07/11/24 02:26 Calculated Osmolality 289 mOsm/kg (285-295) 07/12/24 05:15 Calcium 8.9 mg/dL (8.5-10.5) 07/12/24 05:15 Magnesium 2.0 mg/dL (1.7-2.3) 07/12/24 05:15 Iron 55 ug/dL (37-145) 07/11/24 02:26 TIBC 295 mcg/dl 07/11/24 02:26 % Saturation 18.6 % (20-50) L 07/11/24 02:26 Unsat Iron Binding 240 ug/dL (112-347) 07/11/24 02:26 Total Bilirubin 1.4 mg/dL (0.15-1.2) H 07/12/24 05:15 AST 356 U/L (0-32) H 07/12/24 05:15 ALT 444 U/L (0-33) H 07/12/24 05:15 Alkaline Phosphatase 156 U/L (35-105) H 07/12/24 05:15 Troponin T Baseline 11 ng/L (0-10) H 07/11/24 02:26 Troponin T 120 Minute 20.95 ng/L (0-10) H 07/11/24 04:20 Delta Troponin T 9.95 ABS# (0-10) 07/11/24 04:20 Troponin T Hi Sens 6Hr 18.92 ng/L (0-10) H 07/11/24 09:12 Troponin T Hi Sens 6Hr Delta 7.92 ng/L (0-12) 07/11/24 09:12 NT-Pro-B Natriuret Pep 107 pg/mL (0-125) 07/11/24 02:26 Total Protein 6.7 g/dL (6.6-8.7) 07/12/24 05:15 Albumin 3.9 g/dL (3.5-5.2) 07/12/24 05:15 Globulin 2.8 g/dL (1.3-4.6) 07/12/24 05:15 Triglycerides 240 mg/dL (0-150) H 07/11/24 02:26 Cholesterol 184 mg/dL (0-200) 07/11/24 02:26 LDL Cholesterol, Calc 97 mg/dL (50-129) 07/11/24 02:26 HDL Cholesterol 39 mg/dL (60-100) L 07/11/24 02:26 LDL/HDL Ratio 2.49 RATIO (0.00-3.22) 07/11/24 02:26 Cholesterol/HDL Ratio 4.72 mg/dL (0.0-4.40) H 07/11/24 02:26 Lipase 50 U/L (13-60) 07/11/24 02:26 Vitamin B12 646 pg/mL (232-1245) 07/11/24 02:26 Folate > 20.0 ng/mL (4.8-37.3) 07/12/24 05:15 TSH 4.18 uIU/mL (0.27-4.20) 07/11/24 02:26 Vitals Last Vital Signs Temp 97.9 F 07/12/24 08:00 Pulse 86 07/12/24 08:00 Resp 24 H 07/12/24 08:00 BP 122/72 07/12/24 08:00 Pulse Ox 92 07/12/24 08:00 O2 Del Method Room Air 07/12/24 08:00 Discharge Plan Discharge Patient Disposition: Home Condition: Stable Prescriptions: New clonidine HCl 0.1 mg tablet 0.1 mg PO Q8H PRN (Reason: hypertensive emergency) Qty: 20 0RF Rx Instructions: For Systolic >185 diastolic >100 amlodipine 5 mg Tablet 5 mg PO DAILY Qty: 30 0RF Continued acetaminophen 325 mg capsule 325 mg PO QID PRN (Reason: Pain) metoprolol tartrate 25 mg tablet 25 mg PO BID Qty: 180 3RF levetiracetam 750 mg tablet 750 mg PO BID Discharge Orders: Discharge Order (Routine); Ordered 07/12/24 Ordered By: Rudi Vega Referrals: Floresita Wills PA [Primary Care Provider] - 07/25/24 2:20 pm Discharge Diet: Usual diet Discharge Activity: Increase activity as tolerated Patient Instructions: Clonidine (By mouth), Amlodipine (By mouth), Chest Pain (DC), Chronic Hypertension (DC), Hypertension (ED), Opioid Safety, Pain Management Activity Restrictions/Additional Instructions: Check your blood pressure daily at home maintain a blood pressure diary. Goal blood pressure less than 140/90 mmHg. Follow-up with a primary care provider within next 2 weeks for further adjustment of antihypertensive. Continue metoprolol as before. Take amlodipine 5 mg oral daily. You should have a repeat lipid panel checked in next 6 months. Discharge Attestations Time Spent in Discharge Care*: greater than 30 min Specific Discharge Activities: educating patient, educating and/or supporting family/caregiver, discussing with pcp/other providers, discussing with case aide/social workers/dc planners, documenting/other paperwork and evaluating patient/reviewing data Status at Discharge: Cognitive status at discharge: cognitively intact , Behavioral status at discharge: cooperative , Functional status at discharge: independent ambulation , Overall status at discharge: patient is back to baseline Quality Metrics Clinical Quality Measures [ No reported AMI, CVA or VTE this stay] Coding Level of Care Code 42528 Total time (in minutes) for Discharge: 60 Diagnoses Accelerated hypertension I10 Chest pain R07.9
[2024-07-12 10:08] VITALS: BP 115/73; PULSE 73; RESP 111; TEMP 36.9; O2SAT 94
== END 2024-07-12 10:50 | disposition home or self-care (01) ==
LOC: ER 07:32 → ER IP 08:44 → CSU 15:33
PROVIDERS: Family Medicine; Admitting Provider Student in an Organized Health Care Education/Training Program; Emergency Provider Emergency Medicine; PCP Physician Assistant; Visit Provider Student in an Organized Health Care Education/Training Program
DX: R07.89 Other chest pain (principal); I10 Essential (primary) hypertension; Z86.73 Personal history of transient ischemic attack (TIA), and cerebral infarction without residual deficits; Z79.82 Long term (current) use of aspirin
CPT/HCPCS: 36415; 71045; 71275; 78452; 80053; 80061; 82607; 82746; 83036; 83540; 83550; 83690; 83735; 83880; 84443; 84484; 85025; 93005; 93017; 93306; 94664; 96374; 96375; 96376; 99285; A9500; G0378; J2405; J2470; J2785; J3490

== ENCOUNTER 2025-02-24 11:08 | Outpatient (CLI) | payer MEDICARE, SELFPAY ==
--- NOTE | 2025-02-24 11:14 | MM_ITS ---
WS: [id number] BILATERAL 3D TOMOSYNTHESIS DIGITAL SCREENING MAMMOGRAPHY WITH CAD CLINICAL INFORMATION: SCREENING HISTORY: Screening mammogram. No current complaints. COMPARISON: 2020 TECHNIQUE: Bilateral CC and MLO views. FINDINGS: Scattered fibroglandular densities bilaterally. No suspicious focal mass, asymmetry, calcifications, or architectural distortion. No evidence of malignancy. MM/MM scr BI tomosynthesis [id number] IMPRESSION: DENSITY: There are scattered areas of fibroglandular density. BI-RADS: 1 - Negative. FOLLOW UP: 1 Year Follow-up Recommend return to annual screening mammography.
== END 2025-02-24 11:09 | disposition home or self-care (01) ==
LOC: RAD 11:10
PROVIDERS: PCP Physician Assistant; Visit Provider Physician Assistant
DX: Z12.31 Encounter for screening mammogram for malignant neoplasm of breast (principal); R92.323 Mammographic fibroglandular density, bilateral breasts
CPT/HCPCS: 77063; 77067

== ENCOUNTER → 2025-04-14 12:59 | Outpatient (BNVA) | payer MEDICARE, SELFPAY | PROVIDERS: PCP Physician Assistant; Visit Provider Internal Medicine | DX: I47.10 Supraventricular tachycardia, unspecified (principal); I10 Essential (primary) hypertension; Z87.891 Personal history of nicotine dependence | CPT/HCPCS: 99214 ==